=== PATIENT | female | born 1945 | race Caucasian/White ===

== ENCOUNTER → 2019-12-20 | Outpatient (CLI) | payer MEDICARE, BC ==
[~2019-12-20] MED LIST: ALEN70TA3 PO; AMLO-150 PO; AMLO10TA8 PO; ASCO-184 PO; ASPI-496 PO; ATOR40TA78 PO; B CO1TAB14 PO; BACL-19 PO; BUPRENORPHINE SL; CYCL-259 PO; CYCL1DRO EACHEYE; DICL100G25 TP; DULO20CA45 PO; DULO30CA2 PO; DULO60CA7 PO; ESTR1TAB6 PO; FURO20TA3 PO; HYDR-3653 PO; KRIL1CAP7 PO; LACT1CAP37 PO; LEVO88TA4 PO; MIRA50TA PO; MOME17SP9 NS; MV-M1TAB16 PO; NALOXONE SL; PSYL3.4P5 PO; TELM80TA PO; TIZA4CAP PO; TRAM50TA2 PO; TRAZ50TA66 PO; TURM500C4 PO; medical marijuana; vitamin e PO
[2019-12-20 15:53] LABS: ALANINE AMINOTRANSFERASE 31 U/L (12-78); ANION GAP 5 mmol/L (5-15); CALCIUM 9.3 mg/dL (8.5-10.1); CHLORIDE 99 mmol/L (98-107); CREATININE 0.69 mg/dL (0.55-1.02)
[2019-12-20 15:55] LABS: ALKALINE PHOSPHATASE 73 U/L (45-117); BILIRUBIN,TOTAL 0.7 mg/dL (0.2-1.0); TOTAL PROTEIN 6.8 g/dL (6.4-8.2)
[2019-12-20 16:01] LABS: BASOPHILS # (AUTO) 0.04 x10^3/uL (0-0.1); BASOPHILS % (AUTO) 1 % (0-1); EOSINOPHILS # (AUTO) 0.14 x10^3/uL (0-0.4); EOSINOPHILS % (AUTO) 2 % (1-7); LYMPHOCYTES # (AUTO) 3.13 x10^3/uL (1-3.4); LYMPHOCYTES % (AUTO) 34 % (22-44); MD NO; MEAN CORPUSCULAR HEMOGLOBIN 31.7 pg (27.0-34.8); MEAN CORPUSCULAR HGB CONC 33.5 g/dL (32.4-35.8); MEAN CORPUSCULAR VOLUME 94.5 fL (80-100); MEAN PLATELET VOLUME 9.9 fL (7.4-10.4); MONOCYTES # (AUTO) 0.95 x10^3/uL (0.2-0.8); MONOCYTES % (AUTO) 10 % (2-9); NEUTROPHILS # (AUTO) 4.94 x10^3/uL (1.8-6.8); NEUTROPHILS % (AUTO) 54 % (42-75); PLATELET COUNT 326 x10^3/uL (130-400); RED BLOOD COUNT 4.32 x10^6/uL (3.82-5.3); RED CELL DISTRIBUTION WIDTH 14.4 % (9.6-15.2)
== END | disposition home or self-care (01) ==
LOC: STAR 14:05
PROVIDERS: ATTEND Orthopaedic Surgery
DX: Z01.818 Encounter for other preprocedural examination (principal); I44.7 Left bundle-branch block, unspecified; M17.11 Unilateral primary osteoarthritis, right knee
CPT/HCPCS: 36415; 80053; 85025; 87081; 93005

== ENCOUNTER → 2020-02-29 | Outpatient (CLI) | payer MEDICARE, BC ==
[~2020-02-29] MED LIST changes: +ACET-1600 PO; +AMOX-291 PO; +CALC1CAP8 PO; +GUAI-348 PO; +IBUP200C8 PO; +INUL1TAB PO; +LORA-702 PO; +MARIJUANA TP; +MELA1TAB15 PO; +MILK175C5 PO; +OXYM15SP NS; +OXYM30SP27 NS; +POLY17PO5 PO; +UBID100C41 PO; +VALE100C PO
[2020-02-29 15:58] LABS: BASOPHILS # (AUTO) 0.05 x10^3/uL (0-0.1); BASOPHILS % (AUTO) 1 % (0-1); EOSINOPHILS # (AUTO) 0.15 x10^3/uL (0-0.4); EOSINOPHILS % (AUTO) 2 % (1-7); LYMPHOCYTES # (AUTO) 2.61 x10^3/uL (1-3.4); LYMPHOCYTES % (AUTO) 26 % (22-44); MD NO; MEAN CORPUSCULAR HEMOGLOBIN 31.2 pg (27.0-34.8); MEAN CORPUSCULAR HGB CONC 32.8 g/dL (32.4-35.8); MEAN CORPUSCULAR VOLUME 95.1 fL (80-100); MEAN PLATELET VOLUME 9.5 fL (7.4-10.4); MONOCYTES # (AUTO) 1.03 x10^3/uL (0.2-0.8); MONOCYTES % (AUTO) 10 % (2-9); NEUTROPHILS # (AUTO) 6.18 x10^3/uL (1.8-6.8); NEUTROPHILS % (AUTO) 62 % (42-75); PLATELET COUNT 268 x10^3/uL (130-400); RED BLOOD COUNT 4.11 x10^6/uL (3.82-5.3); RED CELL DISTRIBUTION WIDTH 13.4 % (9.6-15.2)
[2020-02-29 16:07] LABS: ALBUMIN 3.7 g/dL (3.4-5.0); ANION GAP 4 mmol/L (5-15); CALCIUM 8.4 mg/dL (8.5-10.1); CHLORIDE 97 mmol/L (98-107)
[2020-02-29 16:12] LABS: ALANINE AMINOTRANSFERASE 26 U/L (12-78); ALKALINE PHOSPHATASE 64 U/L (45-117); BILIRUBIN,TOTAL 0.6 mg/dL (0.2-1.0); CREATININE 0.78 mg/dL (0.55-1.02); TOTAL PROTEIN 6.4 g/dL (6.4-8.2)
== END | disposition home or self-care (01) ==
LOC: STAR 14:08
PROVIDERS: ATTEND Orthopaedic Surgery
DX: Z01.818 Encounter for other preprocedural examination (principal); M17.9 Osteoarthritis of knee, unspecified; M23.50 Chronic instability of knee, unspecified knee; M25.561 Pain in right knee; I44.7 Left bundle-branch block, unspecified
CPT/HCPCS: 36415; 80053; 85025; 87081; 93005

== ENCOUNTER 2020-03-05 13:00 | Inpatient (IN) | payer MEDICARE, BC ==
[~2020-03-05] VITALS: Ht 142.2 cm; Wt 63.7 kg
[~2020-03-05 13:00] MED LIST changes: +EPINEPHRINE 1 MG/ML, 1ML ONE; +KETOROLAC 30 MG/1 ML ONE; +ROPIvacaine/PF 0.2%, 20 ML ONE; +SODIUM CHLORIDE 0.9% 50 ML ONE; +TRANEXAMIC ACID 100 MG/ML, 10ML ONE; +VANCOMYCIN 1,000 MG ONE
[2020-03-05] MEDS ORDERED: LACTATED RINGERS 1,000 ML IV SCH (13:24)
[2020-03-05] MEDS ORDERED: CHLORHEXIDINE 15 ML UDC MM STA (13:24)
[2020-03-05] MEDS ORDERED: LIDOCAINE-MPF 1%, 2ML INFIL STA (13:24)
[2020-03-05] MEDS ORDERED: ACETAMINOPHEN 500 MG TABLET PO STA (15:41)
[2020-03-05] MEDS ORDERED: FENTANYL PF 100 MCG/2ML ONE ×7 (15:42→19:21)
[2020-03-05] MEDS ORDERED: ACETAMINOPHEN 500 MG TABLET ONE (15:44)
[2020-03-05] MEDS ORDERED: LIDOCAINE-MPF 2% ,5ML ONE ×3 (15:58→17:50)
[2020-03-05] MEDS ORDERED: PROPOFOL 10 MG/ML, 20ML ONE (15:58)
[2020-03-05] MEDS ORDERED: CEFAZOLIN 1,000 MG ONE (16:01)
[2020-03-05] MEDS ORDERED: DEXAMETHASONE 4 MG/ML, 1ML ONE ×3 (16:01)
[2020-03-05] MEDS ORDERED: ONDANSETRON 2MG/ML, 2ML ONE (18:05)
[2020-03-05] MEDS ORDERED: METOPROLOL 1 MG/ML, 5ML ONE ×2 (18:17)
[2020-03-05] MEDS: LACTATED RINGERS 1,000 ML IV SCH ×2 (18:27→23:58)
[2020-03-05] MEDS ORDERED: DIPHENHYDRAMINE 25 MG CAPSULE PO PRN (18:30)
[2020-03-05] MEDS ORDERED: ONDANSETRON 2MG/ML, 2ML IV PRN (18:30)
[2020-03-05] MEDS: ACETAMINOPHEN 500 MG TABLET PO SCH (18:30)
[2020-03-05] MEDS ORDERED: DEXAMETHASONE 4 MG/ML, 1ML IVPush SCH (18:30)
[2020-03-05] MEDS ORDERED: OXYcodone IR 5MG TABLET PO PRN (18:30)
[2020-03-05] MEDS ORDERED: hydrALAzine 20 MG/ML, 1ML ONE (18:39)
[2020-03-05] MEDS ORDERED: LABETALOL 5MG/ML, 20ML IV PRN (19:00)
[2020-03-05] MEDS ORDERED: TRANEXAMIC ACID 1,000 MG in SODIUM CHLORIDE 0.9% 100 ML IVPB ONE (19:00)
[2020-03-05] MEDS ORDERED: hydrALAzine 20 MG/ML, 1ML IV PRN (19:00)
[2020-03-05] MEDS ORDERED: OXYcodone 5 MG/5 ML ORAL.SOL UDC PO PRN (19:00)
[2020-03-05] MEDS ORDERED: ONDANSETRON 2MG/ML, 2ML IVPush PRN (19:00)
[2020-03-05] MEDS: FENTANYL PF 100 MCG/2ML IV PRN ×4 (19:02→19:31)
[2020-03-05] MEDS ORDERED: HYDROmorphone 1 MG/ML, 1ML INJ ONE ×3 (19:03→20:16)
[2020-03-05] MEDS ORDERED: OXYcodone 5 MG/5 ML ORAL.SOL UDC ONE (19:04)
[2020-03-05] MEDS: HYDROmorphone 1 MG/ML, 1ML INJ IVPush PRN ×6 (19:07→20:24)
[2020-03-05] MEDS ORDERED: FLUTICASONE NASAL SPRAY 16GM NAS SCH (21:00)
[2020-03-05] MEDS ORDERED: TEMPLATE NON-FORMULARY MED. (Cyclosporine (Restasis) 1 DROP) EACHEYE SCH (21:00)
[2020-03-05] MEDS: FLUTICASONE NASAL SPRAY 16GM NAS SCH (22:00)
[2020-03-05] MEDS: POLYETHYLENE GLYCOL 17 GM PACKET PO SCH (22:30)
[2020-03-05] MEDS: ATORVASTATIN 40 MG TABLET PO SCH (22:36)
[2020-03-05] MEDS: BACLOFEN 10 MG TABLET PO SCH (22:36)
[2020-03-05] MEDS: AMLODIPINE 5 MG TABLET PO SCH (22:36)
[2020-03-05] MEDS: DULOXETINE 30 MG CAPSULE.DR PO SCH (22:36)
[2020-03-06 00:17] VITALS: BP 114/66
[2020-03-06] MEDS: PREGABALIN 75 MG CAPSULE PO SCH ×3 (00:30→21:38)
[2020-03-06] MEDS: ACETAMINOPHEN 500 MG TABLET PO SCH ×4 (00:30→18:37)
[2020-03-06] MEDS: CEFAZOLIN PMX 1GM/50ML 50 ML IVPB SCH ×2 (00:31→09:58)
[2020-03-06] MEDS: ASPIRIN 81 MG TABLET EC PO SCH ×2 (06:12→18:36)
[2020-03-06 07:49] VITALS: BP 138/70
[2020-03-06] MEDS: MULTIVITAMINS/MINERALS TABLET PO SCH (08:57)
[2020-03-06] MEDS: BACLOFEN 10 MG TABLET PO SCH ×4 (08:57→22:45)
[2020-03-06] MEDS: LOSARTAN 50MG TABLET PO SCH (08:58)
[2020-03-06] MEDS: LEVOTHYROXINE 88 MCG TABLET PO SCH (08:59)
[2020-03-06] MEDS: DULOXETINE 30 MG CAPSULE.DR PO SCH ×2 (08:59→21:38)
[2020-03-06] MEDS: LACTOBACILLUS 1GM/ PACKET PO SCH (08:59)
[2020-03-06] MEDS: ASCORBIC ACID 250 MG TAB PO SCH (08:59)
[2020-03-06] MEDS: CALCIUM/VITAMIN D3 250-125 TABLET PO SCH (08:59)
[2020-03-06] MEDS ORDERED: TEMPLATE NON-FORMULARY MED. (Ubidecarenone** (Co Q-10**) 300 MG) PO SCH (09:00)
[2020-03-06] MEDS: PSYLLIUM PACKET PO SCH (09:00)
[2020-03-06] MEDS: FLUTICASONE NASAL SPRAY 16GM NAS SCH ×2 (09:16→21:35)
[2020-03-06] MEDS: LACTATED RINGERS 1,000 ML IV SCH ×2 (09:59→21:07)
[2020-03-06] MEDS: OXYcodone IR 5MG TABLET PO PRN ×4 (11:13→22:33)
[2020-03-06 13:16] VITALS: BP 119/62
[2020-03-06 18:34] VITALS: BP 161/69
[2020-03-06] MEDS: POLYETHYLENE GLYCOL 17 GM PACKET PO SCH (18:36)
[2020-03-06] MEDS: ATORVASTATIN 40 MG TABLET PO SCH (21:39)
[2020-03-06] MEDS: AMLODIPINE 5 MG TABLET PO SCH (21:39)
[2020-03-07] MEDS: ACETAMINOPHEN 500 MG TABLET PO SCH ×4 (00:33→18:07)
[2020-03-07 02:18] VITALS: BP_SYST 157; BP_SYST 171; BP_DIAS 72; BP_DIAS 76
[2020-03-07] MEDS: OXYcodone IR 5MG TABLET PO PRN ×2 (03:31→10:50)
[2020-03-07] MEDS: SENNA/DOCUSATE TABLET PO PRN (03:32)
[2020-03-07 06:20] VITALS: BP 159/81
[2020-03-07 06:43] VITALS: BP 163/75
[2020-03-07] MEDS: DULOXETINE 30 MG CAPSULE.DR PO SCH ×2 (08:05→21:54)
[2020-03-07] MEDS: MULTIVITAMINS/MINERALS TABLET PO SCH (08:06)
[2020-03-07] MEDS: LOSARTAN 50MG TABLET PO SCH (08:06)
[2020-03-07] MEDS: ASCORBIC ACID 250 MG TAB PO SCH (08:06)
[2020-03-07] MEDS: LACTOBACILLUS 1GM/ PACKET PO SCH (08:07)
[2020-03-07] MEDS: LEVOTHYROXINE 88 MCG TABLET PO SCH (08:07)
[2020-03-07] MEDS: PREGABALIN 75 MG CAPSULE PO SCH ×2 (08:07→21:53)
[2020-03-07] MEDS: CALCIUM/VITAMIN D3 250-125 TABLET PO SCH (08:08)
[2020-03-07] MEDS: ASPIRIN 81 MG TABLET EC PO SCH ×2 (08:08→17:27)
[2020-03-07] MEDS: PSYLLIUM PACKET PO SCH (08:08)
[2020-03-07] MEDS: FLUTICASONE NASAL SPRAY 16GM NAS SCH ×2 (08:09→21:00)
[2020-03-07] MEDS ORDERED: BISACODYL 10 MG SUPP PR PRN (10:00)
[2020-03-07] MEDS: LACTATED RINGERS 1,000 ML IV SCH ×2 (10:27→22:54)
[2020-03-07 12:18] VITALS: BP 160/76
[2020-03-07] MEDS: BACLOFEN 10 MG TABLET PO SCH ×2 (16:01→21:53)
[2020-03-07] MEDS: POLYETHYLENE GLYCOL 17 GM PACKET PO SCH (18:06)
[2020-03-07 20:40] VITALS: BP 136/74
[2020-03-07] MEDS: AMLODIPINE 5 MG TABLET PO SCH (21:53)
[2020-03-07] MEDS: ATORVASTATIN 40 MG TABLET PO SCH (21:53)
[2020-03-08] MEDS: ACETAMINOPHEN 500 MG TABLET PO SCH ×4 (00:11→21:07)
[2020-03-08 02:44] VITALS: BP 157/79
[2020-03-08 07:49] VITALS: BP 135/82
[2020-03-08] MEDS ORDERED: MAG CITRATE MC SCH (08:00)
[2020-03-08] MEDS ORDERED: MAGNESIUM CITRATE 300ML ORAL SOL PO PRN (08:00)
[2020-03-08] MEDS ORDERED: POLYETHYLENE GLYCOL 17 GM PACKET NG ONE (08:00)
[2020-03-08] MEDS: CALCIUM/VITAMIN D3 250-125 TABLET PO SCH (08:44)
[2020-03-08] MEDS: ASCORBIC ACID 250 MG TAB PO SCH (08:44)
[2020-03-08] MEDS: FLUTICASONE NASAL SPRAY 16GM NAS SCH ×3 (08:44→21:16)
[2020-03-08] MEDS: BACLOFEN 10 MG TABLET PO SCH ×3 (08:44→21:08)
[2020-03-08] MEDS: PREGABALIN 75 MG CAPSULE PO SCH ×2 (08:44→21:07)
[2020-03-08] MEDS: MULTIVITAMINS/MINERALS TABLET PO SCH (08:44)
[2020-03-08] MEDS: LOSARTAN 50MG TABLET PO SCH (08:44)
[2020-03-08] MEDS: DULOXETINE 30 MG CAPSULE.DR PO SCH ×2 (08:44→21:07)
[2020-03-08] MEDS: LEVOTHYROXINE 88 MCG TABLET PO SCH (08:45)
[2020-03-08] MEDS: LACTOBACILLUS 1GM/ PACKET PO SCH (08:45)
[2020-03-08] MEDS: PSYLLIUM PACKET PO SCH (08:45)
[2020-03-08] MEDS: ASPIRIN 81 MG TABLET EC PO SCH ×2 (08:45→17:18)
[2020-03-08] MEDS ORDERED: POLYETHYLENE GLYCOL 17 GM PACKET PO PRN (09:00)
[2020-03-08] MEDS ORDERED: MAGNESIUM CITRATE 300ML ORAL SOL ONE (09:14)
[2020-03-08] MEDS: MAGNESIUM CITRATE 300ML ORAL SOL PO PRN (11:09)
[2020-03-08] MEDS: LACTATED RINGERS 1,000 ML IV SCH (13:07)
[2020-03-08 14:21] VITALS: BP 135/71
[2020-03-08] MEDS: ATORVASTATIN 40 MG TABLET PO SCH (21:07)
[2020-03-08] MEDS: AMLODIPINE 5 MG TABLET PO SCH (21:08)
[2020-03-08 21:23] VITALS: BP 145/75
[2020-03-09 02:26] VITALS: BP 151/73
[2020-03-09] MEDS: LACTATED RINGERS 1,000 ML IV SCH ×2 (02:27→15:47)
[2020-03-09] MEDS: ACETAMINOPHEN 500 MG TABLET PO SCH ×4 (02:49→22:10)
[2020-03-09 07:13] VITALS: BP 137/76
[2020-03-09] MEDS: LOSARTAN 50MG TABLET PO SCH (07:37)
[2020-03-09] MEDS: MAGNESIUM CITRATE 300ML ORAL SOL PO PRN (07:37)
[2020-03-09] MEDS: PSYLLIUM PACKET PO SCH (07:38)
[2020-03-09] MEDS: ASCORBIC ACID 250 MG TAB PO SCH (07:38)
[2020-03-09] MEDS: DULOXETINE 30 MG CAPSULE.DR PO SCH ×2 (07:38→22:11)
[2020-03-09] MEDS: MULTIVITAMINS/MINERALS TABLET PO SCH (07:38)
[2020-03-09] MEDS: LACTOBACILLUS 1GM/ PACKET PO SCH (07:38)
[2020-03-09] MEDS: ASPIRIN 81 MG TABLET EC PO SCH ×2 (07:38→17:08)
[2020-03-09] MEDS: SENNA/DOCUSATE TABLET PO PRN (07:39)
[2020-03-09] MEDS: PREGABALIN 75 MG CAPSULE PO SCH ×2 (07:39→22:11)
[2020-03-09] MEDS: LEVOTHYROXINE 88 MCG TABLET PO SCH (07:39)
[2020-03-09] MEDS: FLUTICASONE NASAL SPRAY 16GM NAS SCH ×2 (07:39→21:58)
[2020-03-09] MEDS: CALCIUM/VITAMIN D3 250-125 TABLET PO SCH (07:39)
[2020-03-09] MEDS: BACLOFEN 10 MG TABLET PO SCH ×3 (07:39→22:11)
[2020-03-09 13:48] VITALS: BP 153/83
[2020-03-09 19:07] VITALS: BP 158/76
[2020-03-09] MEDS: ATORVASTATIN 40 MG TABLET PO SCH (22:11)
[2020-03-09] MEDS: AMLODIPINE 5 MG TABLET PO SCH (22:11)
[2020-03-09] MEDS: OXYcodone IR 5MG TABLET PO PRN (22:47)
[2020-03-10 01:33] VITALS: BP 146/79
[2020-03-10] MEDS: ACETAMINOPHEN 500 MG TABLET PO SCH ×3 (03:30→15:27)
[2020-03-10] MEDS: LACTATED RINGERS 1,000 ML IV SCH (05:07)
[2020-03-10] MEDS: KETOROLAC 30 MG/1 ML IVPush SCH ×2 (06:47→13:09)
[2020-03-10 07:30] VITALS: BP 146/75
[2020-03-10] MEDS: ASCORBIC ACID 250 MG TAB PO SCH (08:58)
[2020-03-10] MEDS: CALCIUM/VITAMIN D3 250-125 TABLET PO SCH (08:58)
[2020-03-10] MEDS: DULOXETINE 30 MG CAPSULE.DR PO SCH (08:58)
[2020-03-10] MEDS: PREGABALIN 75 MG CAPSULE PO SCH (08:58)
[2020-03-10] MEDS: ASPIRIN 81 MG TABLET EC PO SCH (08:58)
[2020-03-10] MEDS: MULTIVITAMINS/MINERALS TABLET PO SCH (08:59)
[2020-03-10] MEDS: LACTOBACILLUS 1GM/ PACKET PO SCH (08:59)
[2020-03-10] MEDS: BACLOFEN 10 MG TABLET PO SCH ×2 (08:59→15:27)
[2020-03-10] MEDS: FLUTICASONE NASAL SPRAY 16GM NAS SCH (08:59)
[2020-03-10] MEDS: PSYLLIUM PACKET PO SCH (08:59)
[2020-03-10] MEDS: LEVOTHYROXINE 88 MCG TABLET PO SCH (08:59)
[2020-03-10] MEDS: LOSARTAN 50MG TABLET PO SCH (08:59)
[2020-03-10] MEDS ORDERED: OXYC5CAP2 PO (10:46)
[2020-03-10] MEDS ORDERED: IBUP200T49 PO (10:51)
[2020-03-10] MEDS ORDERED: ASPI81TA45 PO (10:51)
[2020-03-10 13:38] VITALS: BP 116/65
[2020-03-10] MEDS: OXYcodone IR 5MG TABLET PO PRN (16:46)
== END 2020-03-10 18:57 | disposition home health service (06) | DRG 470 ==
LOC: OUT 13:00 → ORIP 18:27 → OBSVTOIN 18:27 → 3N 21:53 → 4NE 03-06 09:48
PROVIDERS: ADMIT Orthopaedic Surgery; ATTEND Orthopaedic Surgery
PROC: 0SRC0J9 Replacement of Right Knee Joint with Synthetic Substitute, Cemented, Open Approach (ICD-10-PCS; principal; 2020-03-05 15:00)
PROC: 3E0T3BZ Introduction of Anesthetic Agent into Peripheral Nerves and Plexi, Percutaneous Approach (ICD-10-PCS; 2020-03-07)
DX: M17.11 Unilateral primary osteoarthritis, right knee (principal); M21.061 Valgus deformity, not elsewhere classified, right knee; Z88.1 Allergy status to other antibiotic agents; Z79.899 Other long term (current) drug therapy
CPT/HCPCS: 36415; 85018; C1713; G0378; J0171; J0690; J1100; J1170; J1885; J2405; J2704; J2795; J3010; J3370; C1762; C1776; J0360; J7120

== ENCOUNTER 2021-06-08 13:46 | Outpatient (CLI) | payer MEDICARE, BC ==
[~2021-06-08 13:46] MED LIST changes: +AMLO-211 PO; -AMLO10TA8 PO; +ASPI81TA45 PO; -CYCL-259 PO; +CYCL10TA2 PO; -EPINEPHRINE 1 MG/ML, 1ML ONE; +IBUP200T49 PO; -KETOROLAC 30 MG/1 ML ONE; -LACT1CAP37 PO; +LACT1CAP47 PO; +OXYC5CAP2 PO; -ROPIvacaine/PF 0.2%, 20 ML ONE; -SODIUM CHLORIDE 0.9% 50 ML ONE; -TRANEXAMIC ACID 100 MG/ML, 10ML ONE; -VANCOMYCIN 1,000 MG ONE
[2021-06-08] MEDS ORDERED: BUPR1PAT7 TD (15:06)
[2021-06-08 15:10] LABS: ALANINE AMINOTRANSFERASE 42 U/L (12-78); ANION GAP 6 mmol/L (5-15); CHLORIDE 105 mmol/L (98-107); CREATININE 0.65 mg/dL (0.55-1.02)
[2021-06-08 17:14] LABS: ALKALINE PHOSPHATASE 83 U/L (45-117); TOTAL PROTEIN 6.8 g/dL (6.4-8.2)
== END 2021-06-08 23:59 | disposition home or self-care (01) ==
LOC: STAR 13:46
PROVIDERS: ATTEND Orthopaedic Surgery
DX: Z01.818 Encounter for other preprocedural examination (principal); M17.12 Unilateral primary osteoarthritis, left knee; M25.562 Pain in left knee; I44.7 Left bundle-branch block, unspecified
CPT/HCPCS: 36415; 80053; 87081; 93005

== ENCOUNTER 2021-06-17 05:49 | Inpatient (IN) | payer MEDICARE, BC ==
[~2021-06-17] VITALS: Ht 149.9 cm; Wt 65.0 kg
[~2021-06-17 05:49] MED LIST changes: +BUPR1PAT7 TD
[2021-06-17] MEDS ORDERED: EPINEPHRINE 1 MG/ML, 1ML ONE (06:22)
[2021-06-17] MEDS ORDERED: ROPIvacaine/PF 0.2%, 20 ML ONE (06:22)
[2021-06-17] MEDS ORDERED: KETOROLAC 60 MG/2 ML ONE (06:22)
[2021-06-17] MEDS ORDERED: SODIUM CHLORIDE 0.9% 50 ML ONE (06:22)
[2021-06-17 06:25] VITALS: BP 167/95
[2021-06-17] MEDS ORDERED: TRANEXAMIC ACID 100 MG/ML, 10ML ONE (06:26)
[2021-06-17] MEDS ORDERED: VANCOMYCIN 1,000 MG ONE (06:27)
[2021-06-17] MEDS ORDERED: LACTATED RINGERS 1,000 ML IV SCH (06:30)
[2021-06-17] MEDS ORDERED: CHLORHEXIDINE 15 ML UDC PO ONE (06:30)
[2021-06-17] MEDS ORDERED: FENTANYL PF 250 MCG/5ML ONE (06:57)
[2021-06-17] MEDS ORDERED: TRANEXAMIC ACID 1,000 MG in SODIUM CHLORIDE 0.9% 100 ML IVPB ONE (07:00)
[2021-06-17] MEDS ORDERED: PROMETHAZINE 25 MG/ML, 1ML IM PRN (07:00)
[2021-06-17] MEDS ORDERED: OXYcodone/APAP 5/325MG TABLET PO PRN (07:00)
[2021-06-17] MEDS ORDERED: DIPHENHYDRAMINE 50 MG/ML, 1ML IVPush PRN ×3 (07:00→07:30)
[2021-06-17] MEDS ORDERED: ONDANSETRON 2MG/ML, 2ML IV PRN (07:00)
[2021-06-17] MEDS ORDERED: FUROSEMIDE 20 MG TABLET PO PRN (07:00)
[2021-06-17] MEDS ORDERED: ONDANSETRON 4 MG TABLET PO PRN (07:00)
[2021-06-17] MEDS ORDERED: HYDROmorphone 1 MG/ML, 1ML INJ IVPush PRN ×2 (07:00→07:30)
[2021-06-17] MEDS ORDERED: CEFAZOLIN PMX 1GM/50ML 50 ML IVPB SCH (07:00)
[2021-06-17] MEDS: ACETAMINOPHEN 325 MG TABLET PO SCH ×5 (07:00→23:17)
[2021-06-17] MEDS ORDERED: PROMETHAZINE 12.5 MG SUPP PR PRN (07:30)
[2021-06-17] MEDS ORDERED: MIDAZOLAM 1 MG/ML, 2ML IV PRN (07:30)
[2021-06-17] MEDS ORDERED: ONDANSETRON 2MG/ML, 2ML IVPush PRN (07:30)
[2021-06-17] MEDS ORDERED: OXYcodone 5 MG/5 ML ORAL.SOL UDC PO PRN (07:30)
[2021-06-17] MEDS ORDERED: LABETALOL 5MG/ML, 20ML IV PRN (07:30)
[2021-06-17] MEDS ORDERED: PROMETHAZINE 25 MG/ML, 1ML IVPush PRN (07:30)
[2021-06-17] MEDS ORDERED: hydrALAzine 20 MG/ML, 1ML IV PRN (07:30)
[2021-06-17] MEDS ORDERED: EPHEDRINE 50 MG/ML, 1ML IVPush PRN (07:30)
[2021-06-17] MEDS ORDERED: DIAZEPAM 5 MG/ML, 2ML IVPush PRN (07:30)
[2021-06-17] MEDS ORDERED: ALBUTEROL SULFATE 2.5 MG/3 ML NPPB PRN (07:30)
[2021-06-17] MEDS ORDERED: MEPERIDINE/PF 25MG/0.5ML IVPush PRN (07:30)
[2021-06-17] MEDS ORDERED: LABETALOL 5MG/ML, 20ML ONE (07:33)
[2021-06-17] MEDS ORDERED: PROPOFOL 10 MG/ML, 20ML ONE (08:18)
[2021-06-17] MEDS ORDERED: MEPERIDINE/PF 25MG/ML,1ML ONE (08:38)
[2021-06-17] MEDS ORDERED: FENTANYL PF 100 MCG/2ML ONE (08:54)
[2021-06-17] MEDS: FENTANYL PF 100 MCG/2ML IV PRN ×2 (08:56→09:17)
[2021-06-17] MEDS ORDERED: TEMPLATE NON-FORMULARY MED. (Cyclosporine (Restasis) 1 DROP) EACHEYE SCH (09:00)
[2021-06-17] MEDS ORDERED: OXYcodone 5 MG/5 ML ORAL.SOL UDC ONE (09:15)
[2021-06-17] MEDS: DOCUSATE 100 MG CAPSULE PO SCH ×2 (10:56→21:32)
[2021-06-17] MEDS: LEVOTHYROXINE 88 MCG TABLET PO SCH (10:56)
[2021-06-17] MEDS: BACLOFEN 10 MG TABLET PO SCH ×3 (10:57→21:32)
[2021-06-17 14:50] VITALS: BP 125/68
[2021-06-17] MEDS: CEFAZOLIN PMX 1GM/50ML 50 ML IVPB SCH ×2 (15:30→23:17)
[2021-06-17] MEDS: OXYcodone IR 5MG TABLET PO PRN ×2 (15:40→19:57)
[2021-06-17 19:44] VITALS: BP 138/76
[2021-06-17] MEDS ORDERED: EPIN5DRO10 EACHEYE (20:07)
[2021-06-17] MEDS ORDERED: ARTIFICIAL TEARS 15 DROP/ML BOTTLE EACHEYE PRN (21:00)
[2021-06-17] MEDS: (Cyclosporine (Restasis) 1 DROP) EACHEYE SCH (21:00)
[2021-06-17] MEDS: DULOXETINE 30 MG CAPSULE.DR PO SCH (21:32)
[2021-06-17] MEDS: AMLODIPINE 5 MG TABLET PO SCH (21:32)
[2021-06-17] MEDS: TRAZODONE 50MG TABLET PO SCH (21:32)
[2021-06-17] MEDS: DIAZEPAM 5 MG TABLET PO PRN (22:12)
[2021-06-18 00:11] VITALS: BP 115/66
[2021-06-18] MEDS: OXYcodone IR 5MG TABLET PO PRN ×6 (00:29→23:08)
[2021-06-18] MEDS: DIAZEPAM 5 MG TABLET PO PRN (03:07)
[2021-06-18] MEDS: ACETAMINOPHEN 325 MG TABLET PO SCH ×5 (03:07→20:02)
[2021-06-18 03:51] VITALS: BP 106/66
[2021-06-18] MEDS: ASPIRIN 81 MG TABLET EC PO SCH (05:29)
[2021-06-18 07:05] VITALS: BP 127/69
[2021-06-18] MEDS: DOCUSATE 100 MG CAPSULE PO SCH ×2 (07:59→20:02)
[2021-06-18] MEDS: LEVOTHYROXINE 88 MCG TABLET PO SCH (08:00)
[2021-06-18] MEDS: BACLOFEN 10 MG TABLET PO SCH ×3 (08:00→20:02)
[2021-06-18] MEDS: (Cyclosporine (Restasis) 1 DROP) EACHEYE SCH ×2 (08:03→20:02)
[2021-06-18 14:25] VITALS: BP 168/78
[2021-06-18] MEDS ORDERED: HYDROmorphone 2 MG/ML, 1ML ONE (15:41)
[2021-06-18] MEDS ORDERED: ASPIRIN 81 MG TABLET EC PO SCH (18:00)
[2021-06-18 19:55] VITALS: BP 174/78
[2021-06-18] MEDS: DULOXETINE 30 MG CAPSULE.DR PO SCH (20:02)
[2021-06-18] MEDS: AMLODIPINE 5 MG TABLET PO SCH (20:02)
[2021-06-18] MEDS: TRAZODONE 50MG TABLET PO SCH (20:02)
[2021-06-19] MEDS: ACETAMINOPHEN 325 MG TABLET PO SCH ×5 (00:37→16:09)
[2021-06-19 00:43] VITALS: BP 167/90
[2021-06-19] MEDS: OXYcodone IR 5MG TABLET PO PRN ×3 (04:38→15:11)
[2021-06-19] MEDS: ASPIRIN 81 MG TABLET EC PO SCH (05:40)
[2021-06-19 05:52] VITALS: BP 149/82
[2021-06-19] MEDS ORDERED: SUCCINYLCHOLINE 20 MG/ML, 10ML ONE (07:02)
[2021-06-19] MEDS ORDERED: DEXAMETHASONE 4 MG/ML, 1ML ONE (07:02)
[2021-06-19] MEDS ORDERED: CEFAZOLIN 1,000 MG ONE (07:02)
[2021-06-19] MEDS: BACLOFEN 10 MG TABLET PO SCH ×2 (08:09→16:09)
[2021-06-19] MEDS: LEVOTHYROXINE 88 MCG TABLET PO SCH (08:09)
[2021-06-19] MEDS: DOCUSATE 100 MG CAPSULE PO SCH (08:09)
[2021-06-19] MEDS: (Cyclosporine (Restasis) 1 DROP) EACHEYE SCH (08:10)
[2021-06-19 10:30] VITALS: BP 145/87
[2021-06-19 13:01] VITALS: BP 151/91
[2021-06-19 16:06] VITALS: BP 148/87
== END 2021-06-19 17:31 | disposition home or self-care (01) | DRG 470 ==
LOC: OUT 05:49 → 4NE 09:52 → OUT 23:12 → 4NE 23:13 → OBSVTOIN 06-19 07:59
PROVIDERS: ADMIT Orthopaedic Surgery; ATTEND Orthopaedic Surgery
PROC: 0SRD0J9 Replacement of Left Knee Joint with Synthetic Substitute, Cemented, Open Approach (ICD-10-PCS; principal; 2021-06-17 07:00)
DX: M17.12 Unilateral primary osteoarthritis, left knee (principal); R53.81 Other malaise
CPT/HCPCS: C1713; G0378; J0171; J0690; J1100; J1170; J1885; J2175; J2704; J2795; J3010; J3370; C1776; J0330; J7120